=== PATIENT | male | born 1990 | race Caucasian/White ===

== ENCOUNTER 2019-04-29 11:20 | Emergency (ER) | payer OTHER ==
[~2019-04-29] VITALS: Ht 180.3 cm; Wt 82.9 kg
[2019-04-29 11:38] VITALS: BP 124/73
== END 2019-04-29 12:36 | disposition home or self-care (01) ==
LOC: ED 12:14
DX: J02.9 Acute pharyngitis, unspecified (principal); F41.1 Generalized anxiety disorder
CPT/HCPCS: 71046; 99283

== ENCOUNTER 2019-07-30 15:49 | Emergency (ER) | payer OTHER ==
[~2019-07-30] VITALS: Ht 180.3 cm; Wt 86.1 kg
[2019-07-30] MEDS ORDERED: SULF1TAB23 PO (16:26)
--- NOTE | 2019-07-30 17:10 | NUR ---
MD kahn in room at this time
[2019-07-30 17:25] VITALS: BP 112/54
== END 2019-07-30 17:27 | disposition home or self-care (01) ==
LOC: ED 16:25
DX: M79.672 Pain in left foot (principal)
CPT/HCPCS: 99282

== ENCOUNTER 2019-08-08 12:46 | Emergency (ER) | payer OTHER ==
[~2019-08-08] VITALS: Ht 180.3 cm; Wt 84.3 kg
[~2019-08-08 12:46] MED LIST: SULF1TAB23 PO
[2019-08-08 13:07] VITALS: BP 133/77
== END 2019-08-08 13:49 | disposition home or self-care (01) ==
LOC: ED 13:23
DX: M79.2 Neuralgia and neuritis, unspecified (principal)
CPT/HCPCS: 99281